=== PATIENT | male | born 1980 | race Caucasian/White ===

== ENCOUNTER 2021-09-19 17:50 | Emergency (ER) | payer OTHER, SELFPAY ==
[2021-09-19 18:00] VITALS: BP 128/71; PULSE 71; RESP 16; TEMP 37; O2SAT 98
--- NOTE | 2021-09-19 18:25 | ED.EYEPROB ---
HPI - Eye Problem General Chief complaint: Eye Problems Stated complaint: pink eye History of Present Illness HPI Narrative: This is a 40-year-old male presents to the urgent care complaining of cutting conjunctivitis as well as some sore throat, headache body aches patient states that he had a rapid Covid swab on Friday there is a 3 to 5-day PCR and then rechecked himself today was negative patient states that he woke up in his eye has been swollen with erythema. Patient has been having chills body aches and a sore throat that is been going on for approximately 3 days denies having a fever. Patient states that her son has the same symptoms Related Data Allergies Allergy/AdvReac Type Severity Reaction Status Date / Time No Known Allergies Allergy Verified 09/19/21 18:03 Review of Systems Review of Systems: Cough, body aches, chills, red All systems reviewed & are unremarkable except as noted in HPI and below PMFSH Comments At time as signature, I have reviewed and agree with nursing past medical, social, surgical and family history. Please see nursing chart for further information. There is no relevant family history pertinent to the presenting complaint. Exam Narrative: GENERAL:Well-appearing, well-nourished, and in no acute distress. HEAD:Normocephalic, atraumatic. EYES: PERRLA left eye with erythema in the conjunctivae mild drainage ENT: Nares clear, moderate rhinorrhea Mucous membranes moist. Fluid noted in ears erythema irritated pharyngeal CHEST: Clear to auscultation. No respiratory distress. HEART: Regular rate and rhythm. EXTREMITIES: Normal range of motion. No edema. SKIN: Warm, dry, no rash. NEURO: No focal deficits. Alert and oriented x3. Course Course Emergency Course: Negative influenza negative strep Vital Signs Vital signs: Vital Signs Temperature 98.6 F 09/19/21 18:00 Pulse Rate 71 09/19/21 18:00 Respiratory Rate 16 09/19/21 18:00 Blood Pressure 128/71 09/19/21 18:00 Pulse Oximetry 98 09/19/21 18:00 Temperature 98.6 F 09/19/21 18:00 Pulse Rate 71 09/19/21 18:00 Respiratory Rate 16 09/19/21 18:00 Blood Pressure 128/71 09/19/21 18:00 Pulse Oximetry 98 11/10/21 18:00 MDM - Eye Problem Lab Data Labs: Influenza A Screen Negative Reference Range: Negative Influenza B Screen Negative Reference Range: Negative Strep Screen Presumptive Negative *(Reference Range: Negative)* Discharge Plan Discharge Clinical Impression: Bacterial conjunctivitis, Acute tonsillitis Patient Disposition: Home, Self-Care Condition: Stable Instructions: Antibiotic Form, Pharyngitis (ED), Conjunctivitis (ED) Additional Instructions: Apply a cool compress. Wet a washcloth with cold water and place it on your eye. This will help decrease itching and irritation. Do not wear contact lenses. They can irritate your eye. Throw away the pair you are using and ask when you can wear them again. Use a new pair of lenses when your healthcare provider says it is okay. Avoid irritants. Stay away from smoke filled areas. Shield your eyes from wind and sun. Flush your eye. You may need to flush your eye with saline to help decrease your symptoms. Ask for more information on how to flush your eye. Take the medication as prescribed. Salt water gargles and/or may use topical anesthetic (eg. Chloraseptic spray) Take tylenol and ibuprofen as needed for pain and fever as directed. Throw away the toothbrush after 24hours of antibiotic. Follow up with primary care provider in 2-3 days if condition is not improving or seek ER visit if your child starts breathing fast/has trouble breathing, is not drinking enough fluids, will not wake up or will not interact with you. Prescriptions: New ofloxacin 0.3 % drops See Rx In
== END 2021-09-19 19:11 | disposition home or self-care (01) ==
PROVIDERS: Emergency Provider Nurse Practitioner Family
DX: H10.9 Unspecified conjunctivitis (principal); J03.90 Acute tonsillitis, unspecified
CPT/HCPCS: 87081; 87804; 87880; 99213; G0463